=== PATIENT | male | born 1995 | race Two or more races ===

== ENCOUNTER 2023-07-24 01:00 | Emergency (ER) | payer SELFPAY ==
[~2023-07-24] VITALS: Ht 172.7 cm; Wt 73.0 kg
[2023-07-24 01:32] VITALS: TEMP 98.7
[2023-07-24] MEDS ORDERED: ACETAMINOPHEN ES 500 MG TABLET PO ONE (03:00)
[2023-07-24] MEDS ORDERED: CYCLOBENZAPRINE 10 MG TABLET PO ONE (03:00)
[2023-07-24] MEDS ORDERED: ONDANSETRON 4 MG TAB.RAPDIS SL ONE (03:00)
[2023-07-24] MEDS ORDERED: ONDANSETRON 4 MG TAB.RAPDIS ONE (03:03)
[2023-07-24] MEDS ORDERED: CYCLOBENZAPRINE 10 MG TABLET ONE (03:03)
[2023-07-24] MEDS ORDERED: ACETAMINOPHEN ES 500 MG TABLET ONE (03:03)
[2023-07-24] MEDS ORDERED: CYCL10TA9 PO (04:23)
[2023-07-24] MEDS ORDERED: ACET-2605 PO (04:23)
[2023-07-24 04:40] VITALS: BP 136/84; O2SAT 100
== END 2023-07-24 04:41 | disposition home or self-care (01) ==
LOC: ER 01:02
DX: M54.2 Cervicalgia (principal); R51.9 Headache, unspecified; V89.2XXA Person injured in unspecified motor-vehicle accident, traffic, initial encounter; Y93.89 Activity, other specified; Y92.89 Other specified places as the place of occurrence of the external cause; Y99.8 Other external cause status
CPT/HCPCS: 99284; 72125; 71045; 70450; Q0162